=== PATIENT | male | born 1985 | race Hispanic/Latino ===

== ENCOUNTER 2021-10-03 17:52 | Emergency (ER) | payer SELFPAY ==
[~2021-10-03] VITALS: Ht 170.2 cm; Wt 63.5 kg
[2021-10-03] MEDS ORDERED: KETOROLAC TROMETHAMINE 30 MG/ML VIAL IV STA (18:05)
[2021-10-03] MEDS ORDERED: ONDANSETRON HCL INJ 2MG/ML 2ML 2 MG/ML VIAL IV PRN (18:15)
[2021-10-03 18:22] LABS: BASOPHILS % 0.2 % (0.0-1.0); EOSINOPHILS % 0.2 % (0.0-6.0); HEMATOCRIT 44.7 % (38.2-49.6); HEMOGLOBIN 14.9 g/dL (14.0-18.0); LYMPHOCYTES # (AUTO) 1.2 (1.0-3.2); LYMPHOCYTES % 10.9 % (18.0-39.1); MEAN CORPUSCULAR HEMOGLOBIN 31.2 pg (28-32); MEAN CORPUSCULAR HGB CONC 33.3 g/dL (31-35); MEAN CORPUSCULAR VOLUME 93.5 fL (81-99); MONOCYTES # (AUTO) 0.4 (0.2-0.8); MONOCYTES % 3.9 % (4.4-11.3); NEUTROPHILS # (AUTO) 9.1 (2.1-6.9); NEUTROPHILS % 84.5 % (38.7-80.0); PLATELET COUNT 295 x10e3/uL (140-360); RED BLOOD COUNT 4.78 x10e6/uL (4.3-5.7); RED CELL DISTRIBUTION WIDTH 12.5 % (11.7-14.4)
[2021-10-03 18:43] LABS: ALBUMIN/GLOBULIN RATIO 1.2 (0.8-2.0); ANION GAP 13.8 mmol/L (8-16); CALCIUM 9.3 mg/dL (8.4-10.2); CREATININE, SERUM 0.96 mg/dL (0.72-1.25); POTASSIUM 3.8 mmol/L (3.5-5.1)
[2021-10-03] MEDS ORDERED: IOPAMIDOL 370 MG/ML 200 ML INFUS..BTL INJ ONE (19:00)
[2021-10-03] MEDS ORDERED: SODIUM CHLORIDE 0.9% 50ML 50 ML ONE (19:00)
[2021-10-03] MEDS ORDERED: ONDANSETRON ODT4 MG PO (19:41)
[2021-10-03] MEDS ORDERED: DICYCLOMINE HCL20 MG PO (19:41)
[2021-10-03 20:56] VITALS: BP 115/80
== END 2021-10-03 20:20 | disposition home or self-care (01) ==
LOC: ER 18:41
DX: R10.815 Periumbilic abdominal tenderness (principal); K52.89 Other specified noninfective gastroenteritis and colitis; R11.2 Nausea with vomiting, unspecified
CPT/HCPCS: 36415; 74177; 80053; 85025; 99284; Q9967

== ENCOUNTER 2024-07-15 14:33 | Emergency (ER) | payer SELFPAY ==
[~2024-07-15] VITALS: Ht 170.2 cm; Wt 69.1 kg
[~2024-07-15 14:33] MED LIST: DICYCLOMINE HCL20 MG PO; ONDANSETRON ODT4 MG PO
[2024-07-15 14:37] VITALS: PULSE 84; RESP 18; TEMP 97.1; O2SAT 96
[2024-07-15] MEDS ORDERED: PROMETHAZI6.25 MG/5 PO (15:02)
[2024-07-15] MEDS ORDERED: PREDNISONE20 MG PO (15:15)
[2024-07-15] MEDS ORDERED: AZITHROMYCIN250 MG PO (15:15)
[2024-07-15] MEDS ORDERED: COMBIVENT RESPIM4 GM IH (15:15)
[2024-07-15] MEDS ORDERED: VENTOLIN HFA18 GM INH (15:17)
== END 2024-07-15 15:22 | disposition home or self-care (01) ==
LOC: FSED 14:38
DX: R05.9 Cough, unspecified (principal); J20.9 Acute bronchitis, unspecified; R09.89 Other specified symptoms and signs involving the circulatory and respiratory systems
CPT/HCPCS: 71046; 99284